=== PATIENT | male | born 1965 | race Hispanic/Latino ===

== ENCOUNTER → 2023-07-13 | Outpatient (CLI) | payer MEDICAID ==
[~2023-07-13] MED LIST: IOHEXOL 350 MG/ML 100ML INFUS..BTL IV ONE
== END | disposition home or self-care (01) ==
LOC: RAH 11:01
PROVIDERS: ATTEND Student in an Organized Health Care Education/Training Program
DX: I11.0 Hypertensive heart disease with heart failure (principal); I50.23 Acute on chronic systolic (congestive) heart failure; I21.09 ST elevation (STEMI) myocardial infarction involving other coronary artery of anterior wall; E78.2 Mixed hyperlipidemia
CPT/HCPCS: 75574; Q9967 ×2

== ENCOUNTER 2023-10-30 06:33 | Day surgery (SDC) | payer MEDICAID ==
[2023-10-26 10:20] VITALS: BP 190/80; PULSE 159; RESP 18
[2023-10-26 11:45] LABS: BASOPHILS # (AUTO) 0.06 K/uL (0.00-0.20); BASOPHILS % (AUTO) 0.7 % (0.0-5.0); EOSINOPHILS # (AUTO) 0.38 K/uL (0.00-0.70); EOSINOPHILS % (AUTO) 4.7 % (0.0-8.0); HEMATOCRIT 48.9 % (42-54); IMMATURE GRANULOCYTE ABSOLUTE 0.01 K/uL (0-1); LYMPHOCYTES # (AUTO) 2.1 K/uL (1.0-4.8); LYMPHOCYTES % (AUTO) 25.6 % (21.0-51.0); MEAN CORPUSCULAR HEMOGLOBIN 28.5 pg (27.0-33.0); MEAN CORPUSCULAR HGB CONC 32.3 g/dL (32.0-36.0); MEAN CORPUSCULAR VOLUME 88.1 fL (79-99); MONOCYTES # (AUTO) 0.8 K/uL (0.1-1.0); MONOCYTES % (AUTO) 10.1 % (3.0-13.0); NEUTROPHILS # (AUTO) 4.8 K/uL (1.8-7.7); NEUTROPHILS % (AUTO) 58.8 % (40.0-77.0); PLATELET COUNT (AUTO) 153 K/uL (130-400); RED BLOOD CELL COUNT(AUTO) 5.55 MIL/uL (4.50-6.20); WHITE BLOOD COUNT (AUTO) 8.1 K/uL (4.8-10.8)
[2023-10-26 11:59] LABS: CREATININE 1.4 mg/dL (0.5-1.3)
[2023-10-26 12:11] LABS: B-TYPE NATRIURETIC PEPTIDE 615 pg/mL (0-100)
[2023-10-26 13:22] LABS: INR 1.02 (0.85-1.15); PARTIAL THROMBOPLASTIN TIME 25.4 SEC (26.3-35.5); PROTHROMBIN TIME 10.8 SEC (9.6-11.6)
[~2023-10-30] VITALS: Ht 172.7 cm; Wt 76.7 kg
[~2023-10-30 06:33] MED LIST changes: +AMIO200T68 PO; +FURO40TA5 PO; -IOHEXOL 350 MG/ML 100ML INFUS..BTL IV ONE; +LISI20TA24 PO; +POTA-364 PO
[2023-10-30 06:35] VITALS: BP 121/72; PULSE 62; RESP 18
[2023-10-30] MEDS: 0.9%NACL 1000ML 1,000 ML IV ONE (07:10)
[2023-10-30] MEDS ORDERED: ATOR40TA69 PO (07:15)
[2023-10-30] MEDS ORDERED: HEPARIN 10,000 UNIT/10ML (1,000 UNIT/ML) VIAL ONE (07:29)
[2023-10-30] MEDS ORDERED: LIDOCAINE HCL 400MG/20ML VIAL ONE (07:29)
[2023-10-30] MEDS ORDERED: VERAPAMIL HCL 2.5 MG/ML VIAL ONE (07:29)
[2023-10-30] MEDS ORDERED: IOHEXOL 350 MG/ML 100ML INFUS..BTL IV ONE (07:29)
[2023-10-30] MEDS ORDERED: FENTANYL CITRATE PF 50 MCG/1 ML 2ML VIAL ONE (07:29)
[2023-10-30] MEDS ORDERED: MIDAZOLAM HCL 1 MG/ML 2ML VIAL ONE ×2 (07:29→07:54)
[2023-10-30] MEDS ORDERED: NITROGLYCERIN 50MG VIAL ONE (07:30)
[2023-10-30] MEDS ORDERED: ADENOSINE 6MG VIAL IV ONE (08:24)
[2023-10-30] MEDS ORDERED: DEXTROSE 50%-WATER 50 ML DISP.SYRIN IV PRN (09:00)
[2023-10-30] MEDS ORDERED: GLUCAGON 1MG KIT 1 MG ML IM PRN (09:00)
[2023-10-30 09:10] VITALS: BP 126/79; PULSE 69; RESP 16
[2023-10-30 09:25] VITALS: BP 120/85; PULSE 68; RESP 14
[2023-10-30 09:40] VITALS: BP 109/88; PULSE 70; RESP 12
[2023-10-30 09:55] VITALS: BP 134/105; PULSE 72; RESP 10
[2023-10-30 10:00] VITALS: BP 130/88; PULSE 58; RESP 13
== END 2023-10-30 11:15 | disposition home or self-care (01) ==
LOC: DAH 06:33
PROVIDERS: ATTEND Student in an Organized Health Care Education/Training Program
DX: I35.0 Nonrheumatic aortic (valve) stenosis (principal); I20.9 Angina pectoris, unspecified; I48.0 Paroxysmal atrial fibrillation; I25.5 Ischemic cardiomyopathy; E78.2 Mixed hyperlipidemia; I11.0 Hypertensive heart disease with heart failure; I50.23 Acute on chronic systolic (congestive) heart failure; F17.210 Nicotine dependence, cigarettes, uncomplicated; Z86.73 Personal history of transient ischemic attack (TIA), and cerebral infarction without residual deficits; Z82.5 Family history of asthma and other chronic lower respiratory diseases; Z82.49 Family history of ischemic heart disease and other diseases of the circulatory system; Z72.89 Other problems related to lifestyle; Z79.899 Other long term (current) drug therapy
CPT/HCPCS: 80048; 83880; 85025; 85610; 85730; 36415; 93005 ×2; 93456; 71045; C1894 ×2; C1769 ×2; A4649; Q9965; J3010; J3490 ×3; J7030; J1644 ×2; J2250 ×2; Q9967; A4215; A4222; A6260; A4221; A4663; A4216; A6206; A4606; A4223 ×3; 99156; 99157; J0153